=== PATIENT | female | born 1975 | race Caucasian/White ===

== ENCOUNTER → 2019-08-06 16:54 | Outpatient (CLI) | payer BC, MEDICAID, SELFPAY ==
[2019-08-06 15:17] VITALS: BMI 32.3
[2019-08-06 17:32] LABS: Protein, Urine (Random) 13.5 mg/dL (<11.9); Protein:Creat Ratio 96 mg/g CRE (0-200)
[2019-08-06 17:36] LABS: Amphetamine Urine VISTA NEGATIVE (<1000 ng/mL); Barbiturate Urine VISTA NEGATIVE (< 200 ng/mL); Benzodiazepine Urine VISTA NEGATIVE (< 200 ng/mL); Cocaine Urine VISTA NEGATIVE (< 300 ng/mL); Ecstacy Urine VISTA NEGATIVE (< 500 ng/mL); Methadone Urine VISTA NEGATIVE (< 300 ng/mL); PCP Urine VISTA NEGATIVE (< 25 ng/mL); THC Urine VISTA NEGATIVE (< 50 ng/mL); Vista UDS pH Range 6
[2019-08-06 22:16] LABS: Chlamydia Trachomatis by PCR Negative (Negative); Neisserai gonorrhoeae by PCR Negative (Negative); Probe Check PASS; Sample Adequacy Control PASS; Specimen Processing Control PASS
[2019-08-11 17:37] LABS: HPV APTIMA, High Risk Negative (Negative)
== END ==
PROVIDERS: Referring Provider Obstetrics & Gynecology; Visit Provider Obstetrics & Gynecology
DX: O16.9 Unspecified maternal hypertension, unspecified trimester (principal); O09.529 Supervision of elderly multigravida, unspecified trimester; Z3A.00 Weeks of gestation of pregnancy not specified; Z12.4 Encounter for screening for malignant neoplasm of cervix
CPT/HCPCS: 80307; 82570; 84156; 87086; 87491; 87591; 87624; 88175; G0145

== ENCOUNTER → 2019-09-04 14:59 | Outpatient (CLI) | payer BC, MEDICAID, SELFPAY ==
[2019-09-04 14:31] VITALS: BMI 36.6
[2019-09-04 15:54] LABS: Absolute Lymphocyte Count 2.62 X10^3/uL (0.83-4.51); Absolute Neutrophil Count 5.6 X10^3/uL (2.0-7.7); Basophil# 0.05 X10^3/uL; Basophil% 0.5 % (0-1); Eosinophil# 0.13 X10^3/uL; Eosinophils% 1.4 % (0-5); Hemoglobin 13.3 g/dL (12.0-15.0); Lymphocyte # 2.62 X10^3/ul (4.0); Lymphocyte % 28.4 % (19-41); Mean Corp Hgb Conc 34.1 g/dL (32-36); Mean Corpuscular Hgb 31.1 pg (27.0-32.0); Mean Corpuscular Volume 91.3 fL (81-99); Mean Platelet Vol. 10.8 fl (6.2-12.0); Monocyte# 0.76 X10^3/uL; Monocyte% 8.3 % (0-10); NRBC Flagged by Analyzer 0 % (0-5); Neutrophil # 5.63 X10^3/uL (2.7-7.7); Neutrophil % 61.2 % (47-70); Platelet Count 256 K/mm3 (150-450); RBC Distribution Width CV 12.3 % (11.6-14.6); Red Blood Count 4.27 M/mm3 (4.2-5.4); White Blood Count 9.2 K/mm3 (4.4-11.0)
[2019-09-04 16:04] LABS: NATERA MAILED SPECIMEN
[2019-09-04 16:25] LABS: ALB/GLOB Ratio 0.9 RATIO (0.9-2.4); AST(SGOT) 14 U/L (15-37); Alanine Aminotransfer ALT/SGPT 17 U/L (13-56); Albumin, Serum 3.5 g/dL (3.2-5.0); Alkaline Phosphatase 97 U/L (45-117); Anion Gap 7 (5-15); BUN 7 mg/dL (7-18); BUN/Creat Ratio 13.2 RATIO (10-20); Chloride 107 mmol/L (98-107); Creatinine, Serum 0.53 mg/dL (0.55-1.02); EST Glomerular Filtration Rate 134 mL/min (>60); Est Glom Filt Rate - Afr Amer 162 mL/min (>60); Globulin 3.7 g/dL (2.2-4.2); Glucose 92 mg/dL (74-106); Potassium 3.4 mmol/L (3.5-5.1); Protein, Total 7.2 g/dL (6.4-8.2); Sodium Level 138 mmol/L (136-145)
[2019-09-05 08:35] LABS: HIV - WCH Non-Reactive (Nonreactive); Hepatitis B Surface Antigen Non-Reactive (Nonreactive); Hepatitis C Antibody Non-Reactive (Nonreactive); Rubella IgG > 500.0 IU/mL
[2019-09-10 08:05] LABS: Rapid Plasmin Reagin (RPR) NONREACTIVE (NONREACTIVE)
== END ==
PROVIDERS: Referring Provider Obstetrics & Gynecology; Visit Provider Obstetrics & Gynecology
DX: O16.9 Unspecified maternal hypertension, unspecified trimester (principal); O09.529 Supervision of elderly multigravida, unspecified trimester; Z3A.00 Weeks of gestation of pregnancy not specified
CPT/HCPCS: 36415; 80053; 85025; 86592; 86703; 86762; 86803; 86850; 86900; 86901; 87340

== ENCOUNTER → 2019-09-14 13:43 | Outpatient (CLI) | payer BC, MEDICAID, SELFPAY ==
[2019-09-04 14:31] VITALS: BMI 36.6
[2019-09-14 15:04] LABS: Potassium 3.4 mmol/L (3.5-5.1)
== END ==
PROVIDERS: Referring Provider Obstetrics & Gynecology; Visit Provider Obstetrics & Gynecology
DX: E87.6 Hypokalemia (principal)
CPT/HCPCS: 36415; 84132

== ENCOUNTER → 2019-09-30 14:34 | Outpatient (CLI) | payer BC, MEDICAID, SELFPAY ==
[2019-09-30 14:24] VITALS: BMI 32.8
[2019-09-30 15:07] LABS: Potassium 3.6 mmol/L (3.5-5.1)
== END ==
PROVIDERS: Referring Provider Obstetrics & Gynecology; Visit Provider Obstetrics & Gynecology
DX: E87.6 Hypokalemia (principal)
CPT/HCPCS: 36415; 84132

== ENCOUNTER 2019-12-16 19:12 | Inpatient (IN) | payer BC, MEDICAID, SELFPAY ==
[2019-12-16 14:42] VITALS: BMI 32.8
[2019-12-16 20:31] LABS: Fibrinogen 515 mg/dl (203-444)
[2019-12-16 20:39] LABS: Hemoglobin A1c 5.4 % (3.8-5.6)
[2019-12-16 20:42] LABS: Thyroid Stim Hormone (TSH) 1.62 uIU/mL (0.358-3.74)
[2019-12-16] MEDS: miSOPROStol 200 MCG Tablet 800 MCG VAGINAL (20:43)
[2019-12-16 20:50] VITALS: BP 128/72; PULSE 73; TEMP 36.4; O2SAT 98
[2019-12-16 20:55] VITALS: BMI 33.5
[2019-12-16 22:15] LABS: Absolute Lymphocyte Count 3.12 X10^3/uL (0.83-4.51); Absolute Neutrophil Count 6.7 X10^3/uL (2.0-7.7); Basophil# 0.04 X10^3/uL; Basophil% 0.4 % (0-1); Eosinophil# 0.14 X10^3/uL; Eosinophils% 1.3 % (0-5); Hematocrit 33.5 % (37-47); Hemoglobin 11.4 g/dL (12.0-15.0); Lymphocyte # 3.12 X10^3/ul (4.0); Lymphocyte % 28.9 % (19-41); Mean Corpuscular Hgb 32.3 pg (27.0-32.0); Mean Corpuscular Volume 94.9 fL (81-99); Mean Platelet Vol. 11.2 fl (6.2-12.0); Monocyte% 6.5 % (0-10); NRBC Flagged by Analyzer 0 % (0-5); Neutrophil # 6.74 X10^3/uL (2.7-7.7); Neutrophil % 62.3 % (47-70); Platelet Count 290 K/mm3 (150-450); RBC Distribution Width CV 12.2 % (11.6-14.6); RBC Distribution Width SD 42.2 fl (35.1-43.9); Red Blood Count 3.53 M/mm3 (4.2-5.4); White Blood Count 10.8 K/mm3 (4.4-11.0)
[2019-12-16 22:34] VITALS: BP 126/72; PULSE 78; TEMP 36.9; O2SAT 96
[2019-12-17] VITALS (40 sets, daily range): BP systolic 99–149; BP diastolic 47–77; PULSE 61–88; RESP 14–18; TEMP 36.5–39.1; O2SAT 94–100
[2019-12-17] MEDS: miSOPROStol 200 MCG Tablet 400 MCG VAGINAL ×3 (01:01→09:08)
[2019-12-17] MEDS: 0.9% Saline Lock 10 ML Syringe IV ×3 (02:19→13:59)
--- NOTE | 2019-12-17 03:18 | NURSING ---
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
--- NOTE | 2019-12-17 05:48 | HP.PCM_ITS ---
- Problem List (1) AMA (advanced maternal age) multigravida 35+ Status: Acute Comment: PRR PASCUAL ?03/22/2020 PC: Rita Watts, Stefano Nelson Adrienne, Chloe Spouse: Jordon (2) demise, greater than 22 weeks, antepartum Status: Acute (3) Hypertension affecting Status: Acute Comment: never formally diagnosed, no meds. check home bps start baby ASA, check BP x1 week; baseline labs drawn. (4) Status: Acute Qualifiers: Comment: carrier neg. , NIPT abnormal trisomy 21. didn't get AFP done. anatomy with MFM- reviewed (5) Tobacco smoking affecting Status: Acute Comment: encouraged cessation (6) Trisomy 21 of fetus in current gilbert Status: Acute Comment: 01/13 risk on NIPT, declines amniocentesis, nl anatomy and echo. FU Q4 wks biometric parameters and anatomy. weekly BPP starting @ 32 wks with MFM. Delivery recommended at tertiary center will follow with [facility] until 36 weeks History and Physical Date of Admission: 12/17/19 Intake Vital Signs 12/16/19 BMI 32.8 12/16/19 Height 5 ft 2 in 12/16/19 BP 160/100 H Intake Visit Reasons: 26WK DEMISE Chief Complaint: 26 week demise Crystal Grower Required: No Is patient in pain?: No Allergies No Known Allergies Allergy (Verified 12/16/19 20:55) Medications Vits [Prenatabs FA] 1 tab PO DAILY 02/07/15 [History Confirmed 12/16/19] Is last menstrual period known: No Post menopausal: No : No PFSH Medical History (Updated 12/17/19 @ 05:[address] Guerita Cabrera MD) Adenomyosis (Acute) demise, greater than 22 weeks, antepartum (Acute) Surgical History History of cholecystectomy (Acute) Family History Grandfather Cancer Grandmother Cancer Social History (Updated 12/17/19 @ 05:[address] Guerita Cabrera MD) adopted: No household members: family housing: house number of children: 6 current occupational status: other pets and animals: No history of recent travel: No sexually active: Yes Smoking Status: Current every day smoker second hand exposure: Yes alcohol intake: never substance use type: does not use seatbelt use: always do you feel safe at home: Yes additional social history: Damaris PATTON HPI 26WK DEMISE : Details: SPEEDY HORTON is a 44 year old who presents for discussion of demise. she has a complicated by trisomy 21 and upon evaluation for a echo today, demise was diagnosed. she denies any vb lof, was feeling movement. Pregancy History 8 Elective abortions Hx Para 6 Spontaneous abortions 1 Hx # Term Pregnancies Ectopic pregnancies Hx # Pregnancies Multiple births # of living children 6 Past Pregnancies Del. Date Name GA/Weeks Outcome Route Bth Weight Gen Labor Lgth Anesthesia Del Locatn Provider FOB Unknown 09/23/95- Stefanie 42 live - full term 8lbs 7oz Female 3 -4 hours epidural [facility] Unknown 12/24/96- Rita 41 live - full term 8lbs 11oz Female 3- hours epidural [place] Unknown 11/13/98 Leslie 39 live - full term 10lbs 1oz Female epidural [facility] general Unknown 11/18/01 Stefano 39 live - full term 8lbs 13oz Male epidural [facility] Tizzano Unknown 02/06/03 Ayala 39 live - full term 8lbs Fema le epidural [facility] [place] Unknown 02/11/2015- Neda 38 live - full term 8lbs 9oz Female epidural [facility] Gualberto Ruvalcaba Delivery Date: On 08/06/19 @ 15:23 Stefanie Josue No complications Delivery Date: On 08/06/19 @ 15:24 Stefanie Josue no complications Delivery Date: On 08/06/19 @ 15:25 Stefanie Josue no complications Delivery Date: On 08/06/19 @ 15:27 Stefanie Josue baby had stroke after delivery Delivery Date: On 08/06/19 @ 15:28 Stefanie Josue no complications Delivery Date: On 08/06/19 @ 15:31 Stefanie Josue iol- htn ROS Const Constitutional: Denies fatigue, fever(s), headache(s), increased appetite, poor appetite, weight gain or weight loss Cardio Card: Denies chest pain Resp Resp: Denies cough or dyspnea GI GI: Reports as per HPI; denies abdominal pain, constipation, nausea or vomiting : Reports as per HPI; denies difficulty urinating, painful urination, nipple discharge, urinary frequency, urinary incontinence, urinary hesitancy, urinary urgency, vaginal discharge, vaginal dryness, vaginal odor or vaginal itching Skin Skin/Breast: Denies change in hair, breast lump, breast pain, breast skin changes or nipple discharge Exam Const General: cooperative, healthy appearing, comfortable, no acute distress, well developed Nutritional Appearance: average body habitus Orientation: alert HENMT Head: normal to inspection, normocephalic Neck Neck: normal visual inspection, trachea midline Thyroid: thyroid normal Resp Effort & Inspection: normal respiratory effort GI Palpation: soft, other (gravid AGA) Skin General: no rashes or lesions noted Assessment & Plan Problems 1. Z34.90 carrier neg. , NIPT abnormal trisomy 21. didn't get AFP done. anatomy with MFM- reviewed 2. AMA (advanced maternal age) multigravida 35+ O09.529 PRR PASCUAL ?03/22/2020 PC: Rita Watts Andie, Ryan, Adrienne, Chloe Spouse: Jordon 3. Hypertension affecting O16.9 never formally diagnosed, no meds. check home bps start baby ASA, check BP x1 week; baseline labs drawn. 4. Trisomy 21 of fetus in current gilbert O35.1XX0 9/10 risk on NIPT, declines amniocentesis, nl anatomy and echo. FU Q4 wks biometric parameters and anatomy. weekly BPP starting @ 32 wks with MFM. Delivery recommended at tertiary center will follow with [facility] until 36 weeks 5. Tobacco smoking affecting O99.330 encouraged cessation 6. demise, greater than 22 weeks, antepartum O36.4XX0 Plan Patient presents IOL, plan management for with cytotec and possible pitocin. 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 GBS unknown, no signs of infection. Management of any complications: suspected trisomy 21 with demise. ordered lab evaluation and plan genetic studies if desired by patient. I have reviewed the [facility] and made any clinically relevant updates. Coding Level of Care Code Off vis,est,level 4 Diagnoses Z34.90 AMA (advanced maternal age) multigravida 35+ O09.529 Hypertension affecting O16.9 Trisomy 21 of fetus in current gilbert O35.1XX0 Tobacco smoking affecting O99.330 demise, greater than 22 weeks, antepartum O36.4XX0
[2019-12-17] MEDS: 0.9% Normal Saline Single 100 ML IV.SOLN. IY (07:56)
--- NOTE | 2019-12-17 10:40 | PLAC_PTH ---
PATIENT: SPEEDY HORTON LOC: WP U#:[id number] AGE/SX: 44/F ROOM: WP021 RE12/16/[address]: Dr. Guerita Cabrera MD : [id number] BED: 1 DIS: 12/17/2019 SPEC #: [id number] RECD: 12/17/19 18:12 STATUS: DREA REWilbert #: [id number] RICHARD: 12/17/19 10:[address]: Guerita Cabrera DEPT: SURGICAL PATHOLOGY RECD BY: Stefano Jerez ENTERED: 12/18/19 07:54 SP TYPE: PLACENTA OTHR DR: No Primary Care Phys Tissues: Placenta, NOS Procedures: Surgery Specimen Level V HEADER OPERATION: Vaginal delivery PRE-OP DIAGNOSIS: demise TISSUE SUBMITTED: Placenta MICROSCOPIC DIAGNOSIS Placenta: Placental disc - third trimester placenta (224 gm). Membranes - no pathologic diagnosis. Umbilical cord - three blood vessels and macerated. SJ:peace 12/21/19 MICROSCOPIC DESCRIPTION Slides are reviewed. GROSS DESCRIPTION SPECIMEN: PLACENTA / CLINICAL INFORMATION: A. Weight: Not noted B. Gestational Age: 26 weeks and 2 days C. Sex: Male PLACENTAL WEIGHT (POST FIXATION): 224 gm PLACENTAL DIMENSIONS: 12 x 11 x 3 cm PLACENTAL SHAPE: Usual ovoid PLACENTAL WEIGHT FOR GESTATIONAL AGE: Within 10-99th percentile MEMBRANES - Present. A clamp is noted on the membrane including umbilical cord. A. Insertion: Marginal B. Site of rupture from edge: The membranes are fragmented and distance of rupture cannot be assessed. C. Color of membrane: Pimentel-robles D. Abnormalities: None UMBILICAL CORD - Present. It is pimentel-pink and macerated. A. Color: Pimentel-robles B. Insertion: Central C. Length: 45 cm D. Diameter: 1 cm E. Number of vessels: Three F. Abnormalities: None PLACENTAL DISC - Present A. Color of surface: Pimentel-robles B. surface abnormalities: None C. Maternal cotyledons: Intact with minimal tears D. Attached retro placental clot: A few blood clots are noted adherent to peripheral portion of the placenta measuring 6 x 4 x 1 cm and weighing 11 gm. E. Cut surface: Dark red and spongy F. Lesions: None G. Separate clot: Absent SECTIONS SUBMITTED: 1. Membrane roll 2. Cord, maternal end 3. Cord, end 4. Placental disc, and maternal surfaces 5. Placental disc, and maternal surfaces 6. Placental disc, and maternal surfaces SJ:peace 12/18/19 TC:5 CPT: 92033
[2019-12-17] MEDS: Oxytocin 30 units/NS 500 ml 30 UNITS/500 ML IV.SOLN 334 UNITS IV (10:56)
--- NOTE | 2019-12-17 11:07 | PCM.OPRPT ---
Problem List (1) AMA (advanced maternal age) multigravida 35+ Status: Acute Comment: PRR PASCUAL ?03/22/2020 PC: Rita Watts, Stefano Nelson Adrienne, Chloe Spouse: Jordon (2) demise, greater than 22 weeks, antepartum Status: Acute (3) Hypertension affecting Status: Acute Comment: never formally diagnosed, no meds. check home bps start baby ASA, check BP x1 week; baseline labs drawn. (4) Status: Acute Qualifiers: Comment: carrier neg. , NIPT abnormal trisomy 21. didn't get AFP done. anatomy with MFM- reviewed (5) Tobacco smoking affecting Status: Acute Comment: encouraged cessation (6) Trisomy 21 of fetus in current gilbert Status: Acute Comment: 01/13 risk on NIPT, declines amniocentesis, nl anatomy and echo. FU Q4 wks biometric parameters and anatomy. weekly BPP starting @ 32 wks with MFM. Delivery recommended at tertiary center will follow with [facility] until 36 weeks Vaginal Delivery Maternal Presentation: Medically Indicated Induction iol 26 demise with trisomy 21 Method of Induction: Diaz Bulb, Cytotec Medical Reason for Induction: demise - trisomy 21 Amniotic Membrane Rupture Type: Spontaneous Amniotic Fluid Description: Clear Final PASCUAL: 03/22/20 Gestational age: 26 Weeks and 2 Days Date of Procedure: 12/17/19 Pre-Operative Diagnosis: iol demise trisomy 21 Post-Operative Diagnosis: same Surgery/ Procedure Performed: Spontaneous Vaginal Delivery Type of Anesthesia: None Description of Procedure: Patient was induced with Cytotec followed by Diaz bulb placement and was 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 Patient began feeling pressure and was noted to be completely dilated with gestational sac present in the vaginal cavity. Patient began pushing with contractions and delivered the gestational sac intact and then it spontaneously ruptured with the fetus in complete breech presentation. The infant was rotated to the back anterior presentation and arms swept across the chest and gentle downward traction on the maxillary region to aid in delivery of the head. Infant delivered without complication and was inspected and noted to have characteristics of trisomy 21 based on facial features and low-set ears. Cord was clamped and cut and within 20 minutes the placenta delivered spontaneously and was noted to be intact with a three-vessel cord. No gross abnormalities were noted to the placenta and was sent to pathology for analysis. Patient declined genetic testing. Presentation: Complete Breech Placental Delivery Description: Spontaneous Placenta Disposition: [facility] Cord Vessel Description: 3 Vessels Cord Entanglement: None Estimated Blood Loss: 200 A gender: Male (1 minute): 0 (5 minute): 0 Episiotomy Description: None Laceration: None Medications given after delivery: IV Pitocin Complications: None Multi Select Codes - Urinary/Genital Urinary/Genital CPT Codes: 00253 Vaginal Delivery+ PP Care([facility])
[2019-12-17] MEDS: Acetaminophen 325 MG Tablet 650 MG PO (11:36)
[2019-12-17] MEDS: Cefazolin 2 GM in 0.9% Normal Saline 100 ML IV (12:08)
[2019-12-17 12:09] LABS: Absolute Lymphocyte Count 3.19 X10^3/uL (0.83-4.51); Absolute Neutrophil Count 11.4 X10^3/uL (2.0-7.7); Basophil# 0.05 X10^3/uL; Basophil% 0.3 % (0-1); Eosinophils% 0.6 % (0-5); Hematocrit 32.4 % (37-47); Hemoglobin 11.3 g/dL (12.0-15.0); Lymphocyte # 3.19 X10^3/ul (4.0); Lymphocyte % 20.2 % (19-41); Mean Corp Hgb Conc 34.9 g/dL (32-36); Mean Corpuscular Volume 94.7 fL (81-99); Mean Platelet Vol. 10.7 fl (6.2-12.0); Monocyte# 1.03 X10^3/uL; Monocyte% 6.5 % (0-10); NRBC Flagged by Analyzer 0 % (0-5); Neutrophil # 11.37 X10^3/uL (2.7-7.7); Platelet Count 265 K/mm3 (150-450); RBC Distribution Width SD 41.5 fl (35.1-43.9); Red Blood Count 3.42 M/mm3 (4.2-5.4); White Blood Count 15.8 K/mm3 (4.4-11.0)
[2019-12-17] MEDS: Naproxen 250 MG Tablet 500 MG PO (12:52)
[2019-12-17 14:25] LABS: Kleihauer-Betke Negative
--- NOTE | 2019-12-17 15:00 | NURSING ---
Male stillborn at 1040 with a weight of 1lb 12.3oz, a body length of 13 inches, and a head circumference of 22.5cm.
[2019-12-17] MEDS: Senna/Docusate Sodium 1 Tablet PO (15:20)
--- NOTE | 2019-12-17 17:48 | DCINST_ITS ---
Discharge Diet: No Restrictions Discharge Activity: Return to Normal Activity, May not drive while taking narcotic pain medications., May Shower May resume sexual activity in: 4-6 weeks Call your doctor if your incision/area has: Continuous Slow Oozing, Sudden Increased Bleeding, Increased Pain/ Swelling, Increased Redness, Foul Smelling Discharge Additional Instructions: If you experience any of the following, contact your healthcare provider. * Bleeding that soaks a pad every hour for 2 hours * Fever 100.4 or higher * Unrelieved incision or abdominal pain * Swelling, redness, discharge or bleeding from your incision or episiotomy site * Your incision begins to separate * Problems urinating (including inability to urinate or burning while urinating). * Visual changes * Severe headache * Flu-like symptoms * Pain or redness in one of both of your breasts * Pain, warmth, tenderness or swelling in your legs, especially the calf area * Frequent nausea and vomiting * Symptoms of depression or anxiety If you experience any of the following, call 911 or go to the nearest Emergency Room. * Chest pain * Problems breathing * Seizure activity * Partial or complete paralysis of a body part, slurred speech, weakness or drooping of the face, or a sudden inability to walk or hold your balance Allergies/Adverse Reactions: Allergies No Known Allergies Allergy (Verified 12/16/19 20:55) Medications to take at Discharge Vits [Prenatabs FA] 1 tab PO DAILY 02/07/15 Please Follow Up With: Guerita Cabrera MD - [phone] When: Call to make an appointment with your doctor in 6 weeks. If you had elevated Blood pressure or 4th degree laceration you will need to be seen in 2 weeks. Primary Care Physician: Care Physician,No Primary [Primary Care Provider] - Test Results: Test results from this visit will be discussed in further detail at your follow- up appointment, if applicable.
--- NOTE | 2019-12-17 17:48 | PCM.DCVAG ---
Discharge Diet: No Restrictions Discharge Activity: Return to Normal Activity, May not drive while taking narcotic pain medications., May Shower May resume sexual activity in: 4-6 weeks Call your doctor if your incision/area has: Continuous Slow Oozing, Sudden Increased Bleeding, Increased Pain/ Swelling, Increased Redness, Foul Smelling Discharge Additional Instructions: If you experience any of the following, contact your healthcare provider. Bleeding that soaks a pad every hour for 2 hours Fever 100.4 or higher Unrelieved incision or abdominal pain Swelling, redness, discharge or bleeding from your incision or episiotomy site Your incision begins to separate Problems urinating (including inability to urinate or burning while urinating). Visual changes Severe headache Flu-like symptoms Pain or redness in one of both of your breasts Pain, warmth, tenderness or swelling in your legs, especially the calf area Frequent nausea and vomiting Symptoms of depression or anxiety If you experience any of the following, call 911 or go to the nearest Emergency Room. Chest pain Problems breathing Seizure activity Partial or complete paralysis of a body part, slurred speech, weakness or drooping of the face, or a sudden inability to walk or hold your balance Allergies/Adverse Reactions: Allergies No Known Allergies Allergy (Verified 12/16/19 20:55) Medications to take at Discharge Vits [Prenatabs FA] 1 tab PO DAILY 02/07/15 Please Follow Up With: Guerita Cabrera MD - [phone] When: Call to make an appointment with your doctor in 6 weeks. If you had elevated Blood pressure or 4th degree laceration you will need to be seen in 2 weeks. Primary Care Physician: Care Physician,No Primary [Primary Care Provider] - Test Results: Test results from this visit will be discussed in further detail at your follow-up appointment, if applicable.
[2019-12-17 18:25] LABS: Pathology Specimen OB SEE PATHOLOGY REPORT
[2019-12-20 16:07] LABS: Dilute Prothrombin Time (dPT) 26.6 sec (0.0-55.0); Dilute Russell Viper Venom 33.4 sec (0.0-47.0); Thrombin Time 16.4 sec (0.0-23.0); dPT Confirm Ratio 1.03 Ratio (0.00-1.40)
[2019-12-21 05:00] LABS: Anti-Cardiolipin Ab, IgG, Qn < 9 GPL U/mL (0-14); Anti-Cardiolipin Ab, IgM, Qn < 9 MPL U/mL (0-12); Beta-2-Glycoprotein I IgA <9 (0-25); Beta-2-Glycoprotein I IgG <9 (0-20); Beta-2-Glycoprotein I IgM <9 (0-32); Interpretation Comment: (.)
== END 2019-12-17 19:47 | disposition home or self-care (01) | DRG 807 ==
PROVIDERS: Admitting Provider Obstetrics & Gynecology; Visit Provider Obstetrics & Gynecology
DX: O36.4XX0 Maternal care for intrauterine death, not applicable or unspecified (principal); Z37.1 Single stillbirth; O16.4 Unspecified maternal hypertension, complicating childbirth; O32.1XX0 Maternal care for breech presentation, not applicable or unspecified; Z3A.00 Weeks of gestation of pregnancy not specified
CPT/HCPCS: 59050; 83036; 84443; 85025; 85384; 85460; 86146; 86147; 86850; 86900; 86901; 88307; 99218; A4216; G0378

== ENCOUNTER → 2020-02-19 07:53 | Outpatient (CLI) | payer BC, MEDICAID, SELFPAY ==
[2020-01-15 14:02] VITALS: BMI 33.5
--- NOTE | 2020-02-19 08:08 | BI_ITS ---
MAMMOGRAPHY - BILATERAL SCREENING REASON FOR EXAM: Female, 45 years old. Routine annual screening examination. PERTINENT HISTORY: Non-contributory. TECHNIQUE: Digital bilateral breast earle (3D mammographic acquisition) in the CC and MLO projections. 2-D mediolateral oblique (MLO) and craniocaudad (CC) views of both breasts were obtained. CAD: Full Field Digital Mammography with Computer Added Detection was performed. COMPARISON: None. Baseline examination. FINDINGS: Breast Composition: The breasts are heterogeneously dense, which may obscure small masses. There are no dominant masses or suspicious calcifications. Small benign-appearing bilateral axillary lymph nodes. No other significant abnormalities are identified. BI/SCREEN MAMM (CAD) W/EARLE BILAT IMPRESSION: Negative screening mammogram. Yearly followup mammogram recommended. (A) ASSESSMENT CATEGORY: BIRADS Category 2: Benign. A letter regarding these results will be sent to the patient by the facility within 30 days. Approximately 10% of breast cancers are not detected by mammography. A normal mammogram should not delay biopsy of a clinically suspicious abnormality. [id number] Electronically Signed: Jovan Cabrera, at 10:13 EDT , Service support ,
== END ==
PROVIDERS: PCP Internal Medicine; Referring Provider Obstetrics & Gynecology; Visit Provider Obstetrics & Gynecology
DX: Z12.31 Encounter for screening mammogram for malignant neoplasm of breast (principal)
CPT/HCPCS: 77063; 77067

== ENCOUNTER 2020-02-20 17:08 | Emergency (ER) | payer BC, MEDICAID, SELFPAY ==
[2020-01-15 14:02] VITALS: BMI 33.5
[2020-02-20 17:10] VITALS: BP 146/76; PULSE 61; RESP 18; TEMP 36.2; O2SAT 98; BMI 32.0
[2020-02-20 17:58] LABS: Absolute Neutrophil Count 3.3 X10^3/uL (2.0-7.7); Basophil# 0.05 X10^3/uL; Basophil% 0.7 % (0-1); Eosinophil# 0.25 X10^3/uL; Eosinophils% 3.3 % (0-5); Hematocrit 39.3 % (37-47); Hemoglobin 12.6 g/dL (12.0-15.0); Lymphocyte % 44.8 % (19-41); Mean Corp Hgb Conc 32.1 g/dL (32-36); Mean Corpuscular Volume 96.6 fL (81-99); Mean Platelet Vol. 10.2 fl (6.2-12.0); Monocyte# 0.53 X10^3/uL; NRBC Flagged by Analyzer 0 % (0-5); Neutrophil # 3.34 X10^3/uL (2.7-7.7); Neutrophil % 43.9 % (47-70); Platelet Count 259 K/mm3 (150-450); RBC Distribution Width CV 11.9 % (11.6-14.6); RBC Distribution Width SD 42.6 fl (35.1-43.9); Red Blood Count 4.07 M/mm3 (4.2-5.4); White Blood Count 7.6 K/mm3 (4.4-11.0)
[2020-02-20] MEDS: 0.9% Normal Saline 1,000 ML 1000 ML IV (18:02)
[2020-02-20 18:07] VITALS: BP 129/100; BP 140/87; BP 148/94; PULSE 51; PULSE 56; PULSE 64
[2020-02-20 18:08] LABS: Internal QC Validated? YES +Cl - CLEAR BKGD; Pregnancy, Serum, hCG Quali. NEGATIVE Negative
--- NOTE | 2020-02-20 18:39 | ED.DCSUM_ITS ---
- ER Visit Summary Date of Service: 02/20/20 Chief Complaint: [Vaginal bleeding] History of Present Illness: The patient is a 45 F [presents to the emergency department with vaginal bleeding for the last 4 days.] Patient states that she had a miscarriage at a gestational age of 26 weeks in December. Patient states that she is having heavy bleeding and initially had a few clots the first day that were little larger than a quarter but is not currently passing any clots. Patient is going through a super tampon or pad about every hour to hour and a half. She feels somewhat weak and lightheaded. She has some intermittent abdominal pain and cramping as well as some mild back pain. The discomfort is typical of her menstrual periods. Patient is G8, P6. Patient has history of hypertension. Patient has had prior cholecystectomy. Physical Examination: [HEENT-PERRLA, EOMI. Cranial nerves II through XII grossly intact. TMs clear. Mucous membranes moist. No adenopathy. Cardiovascular-regular rate and rhythm without murmur or ectopy Lungs-clear to auscultation, chest wall stable without crepitus or subcu emphysema Abdomen-normoactive bowel sounds, soft, nontender, no rebound or rigidity, no peritoneal signs. Extremities-intact ?4, normal range of motion, normal pulses, atraumatic] Test Results: [CBC with differential obtained showing a 7.6, hemoglobin 12.6, hematocrit 39, placed 259. hCG was negative. Orthostatic vital signs were negative.] Emergency Department Course and Treatment: [The line established on arrival. 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 Cabrera. I was asked to start patient on Aygestin 5 mg twice daily for 3 days and once a day thereafter with a total of 30 tablets. Patient advised to follow-up in the office within the next week.] Patient advised to return if persistent heavy bleeding, lightheadedness, worsening abdominal pain, or condition should worsen anyway. Disposition: [Discharged home in stable condition] Impression: [Vaginal bleeding] This note was generated with [employer] dictation software. It may contain incorrect words, spelling, and punctuation that were not noted in review of the chart prior to signing ED Disposition - Plan for ED Patient: Referrals: Esvin Griffith MD [Primary Care Provider] -
--- NOTE | 2020-02-20 18:43 | ED.DEP ---
ED Disposition - Plan for ED Patient: Instructions: ED Bleed Irregular Vaginal Prescriptions: Norethindrone [Aygestin] 5 mg PO DAILY 5 Days #30 tab Prescription Printed Referrals: Esvin Griffith MD [Primary Care Provider] - Guerita Cabrera MD [STAFF PHYSICIAN] - 1 Week if not improving
[2020-02-20 18:52] VITALS: BP 135/87; PULSE 53; RESP 17; O2SAT 98
== END 2020-02-20 19:06 | disposition home or self-care (01) ==
PROVIDERS: Emergency Provider Emergency Medicine; PCP Internal Medicine
DX: N93.9 Abnormal uterine and vaginal bleeding, unspecified (principal); F17.200 Nicotine dependence, unspecified, uncomplicated; I10 Essential (primary) hypertension
CPT/HCPCS: 84703; 85025; 86850; 86900; 86901; 96360; 99281; 99284; A4216

== ENCOUNTER → 2022-08-08 | Outpatient (CLI) | payer BC, MEDICAID, SELFPAY ==
--- NOTE | 2022-08-08 14:46 | BI_ITS ---
MAMMOGRAPHY - BILATERAL SCREENING REASON FOR EXAM: Female, 47 years old. Routine annual screening examination. PERTINENT HISTORY: Non-contributory. TECHNIQUE: Digital bilateral breast earle (3D mammographic acquisition) in the CC and MLO projections. 2-D mediolateral oblique (MLO) and craniocaudad (CC) views of both breasts were obtained. CAD: Full Field Digital Mammography with Computer Added Detection was performed. COMPARISON: Comparison is made with prior examination February 19, 2020. FINDINGS: Breast Composition: There are scattered areas of fibroglandular density. There are no dominant masses or suspicious calcifications. Stable small benign appearing bilateral axillary lymph nodes. No other significant abnormalities are identified. There has been no significant change since the prior study. BI/SCRN MAMM (CAD)W/EARLE BILAT IMPRESSION: Stable bilateral screening mammogram. Yearly follow-up mammogram recommended. (A) ASSESSMENT CATEGORY: BIRADS Category 2: Benign. A letter regarding these results will be sent to the patient by the facility within 30 days. Approximately 10% of breast cancers are not detected by mammography. A normal mammogram should not delay biopsy of a clinically suspicious abnormality. [id number] Electronically Signed: Jovan Cabrera MD at 15:30 EDT ,
== END | disposition home or self-care (01) ==
LOC: OPBI 14:43
PROVIDERS: PCP Internal Medicine; Referring Provider Nurse Practitioner Women's Health; Visit Provider Nurse Practitioner Women's Health
DX: Z12.31 Encounter for screening mammogram for malignant neoplasm of breast (principal)
CPT/HCPCS: 77063; 77067

== ENCOUNTER 2024-10-19 19:04 | Emergency (ER) | payer BC, SELFPAY ==
[2024-10-19] VITALS (21 sets, daily range): BP systolic 119–151; BP diastolic 62–102; PULSE 52–82; RESP 11–20; TEMP 36.6–36.8; O2SAT 94–100; BMI 32.5
--- NOTE | 2024-10-19 19:07 | EKG12_ITS ---
Test Reason : NECK PAIN Blood Pressure : */* mmHG Vent. Rate : 58 BPM Atrial Rate : 58 BPM P-R Int : 158 ms QRS Dur : 86 ms QT Int : 418 ms P-R-T Axes : 53 3 64 degrees QTcB Int : 410 ms Sinus bradycardia Low voltage QRS Borderline ECG Confirmed by ROXANNE MARSH, MARY ([id number]), scientific publications editor ZENOBIA MCCULLOUGH ([id number]) on 10/20/2024 10:53:42 AM Referred By: Confirmed By: MARY OLIVEIRA MD
--- NOTE | 2024-10-19 19:38 | ED.VIS.CHEST ---
HPI History of Present Illness Chief Complaint: Chest Pain Detail of Chief Complaint: Chest pain Informant: patient Narrative Narrative: Patient presents to the emergency department complaining of pain in her neck and shoulders that started an hour prior to coming in. She states that she was at a movie theater when she had this tightness in her neck and shoulders and has also been having heartburn-like symptoms since this morning. She took Pepto several times and it seems to help for short time but then the burning sensation keeps coming back. Patient does have a history of GERD as well as anxiety but is not medicated for anxiety. Her brother who is younger than her has had two-vessel bypass already. She has history of hypertension and she is a smoker. She denies recent travel or surgery. No history of PE or DVT. She denies recent illness. Patient states that she took aspirin and really does not seem to have any more discomfort in her neck or shoulders at this time. [facility] Medical History (Updated 10/19/24 @ 22:[address] Deepak Naqiv, DO) Fibromyalgia Sleep apnea demise, greater than 22 weeks, antepartum Adenomyosis Home Medications ?Medication ?Instructions ?Recorded ?Last Taken ?Type labetalol 100 mg tablet 50 mg (1/2 x 100 mg) PO BID #60 01/01/20 Unknown Rx tabs sertraline 100 mg tablet (Zoloft) 100 mg PO DAILY #30 tabs 07/13/20 Unknown Rx bupropion HCl 150 mg tablet,12 hr 150 mg PO BID #60 ea 07/15/20 Unknown Rx sustained-release (Wellbutrin SR) norethindrone acetate 5 mg tablet 5 mg PO DAILY 5 days #5 tabs 05/02/21 Unknown Rx lansoprazole 30 mg capsule,delayed 30 mg PO DAILY #14 caps 10/19/24 Unknown Rx release (Prevacid) Allergy/AdvReac Type Severity Reaction Status Date / Time No Known Allergies Allergy Verified 10/19/24 19:05 Family History Grandfather Cancer Grandmother Cancer Surgical History History of cholecystectomy Social History (Updated 07/15/20 @ 13:25 by Jesus Byrd NP, [facility]) adopted: No household members: family housing: house number of children: 6 current occupational status: other pets and animals: No history of recent travel: No sexually active: Yes Smoking Status: Current every day smoker tobacco type: cigarettes second hand exposure: Yes alcohol intake: never substance use type: does not use seatbelt use: always do you feel safe at home: Yes additional social history: Damaris PULLIAM ROS ED Review of Systems ROS Unobtainable: other Constitutional Constitutional ED: Reports lethargy; Denies chills, fever(s), sweats or weight loss Eyes Eyes: Denies blurry vision, change in vision or diplopia ENT ENT ED: Denies rhinorrhea or sore throat Cardiovascular Cardiovascular: Reports chest pain; Denies orthopnea or racing heartbeat Respiratory/Chest Respiratory/Chest: Denies cough, dyspnea, dyspnea on exertion, orthopnea or sputum Gastrointestinal Gastrointestinal: Denies abdominal pain, diarrhea, nausea or vomiting Genitourinary Genitourinary ED: Denies dysuria, hematuria or urinary frequency Musculoskeletal Musculoskeletal: Reports neck pain; Denies arthralgias, back pain or myalgias Integumentary Denies abscess, Abrasions or rash Neurologic Neurologic: Denies headache(s) or weakness Psychiatric Psychiatric: Denies anxiety, depression or suicidal thoughts Endocrine Endocrinology: Denies polydipsia, polyphagia or polyuria Hematologic/Lymphatic Hematologic/Lymphatic: Denies easy bleeding, easy bruising or lymphadenopathy Allergic/Immunologic Allergic/Immunologic ED: Denies mouth swelling, tongue swelling or urticaria EXAM Physical Exam Const Vital Signs: 10/19/24 19:05 10/19/24 19:34 10/19/24 19:57 Temperature 97.8 F Temperature Source Temporal Pulse Rate 62 Respiratory Rate 15 Blood Pressure 151/93 H Blood Pressure Mean 112 Pulse Ox 99 100 99 Oxygen Delivery Method Room Air 10/19/24 20:04 10/19/24 20:12 10/19/24 20:15 Temperature Temperature Source Pulse Rate 56 L 55 L 56 L Respiratory Rate 14 13 11 L Blood Pressure 131/85 H 131/85 H Blood Pressure Mean 100 100 Pulse Ox 99 99 99 Oxygen Delivery Method Room Air 10/19/24 20:20 10/19/24 20:25 10/19/24 20:30 Temperature Temperature Source Pulse Rate 67 59 L 58 L Respiratory Rate 16 19 H 20 H Blood Pressure 126/77 H 132/102 H 146/89 H Blood Pressure Mean 92 110 105 Pulse Ox 98 98 98 Oxygen Delivery Method 10/19/24 20:35 10/19/24 20:40 10/19/24 20:45 Temperature Temperature Source Pulse Rate 57 L 56 L 56 L Respiratory Rate 13 18 12 Blood Pressure 131/85 H 133/97 H 132/62 H Blood Pressure Mean 101 106 80 Pulse Ox 99 98 98 Oxygen Delivery Method 10/19/24 20:50 10/19/24 20:55 10/19/24 21:00 Temperature Temperature Source Pulse Rate 61 55 L 52 L Respiratory Rate 15 13 15 Blood Pressure 126/89 H 141/94 H 122/85 H Blood Pressure Mean 100 108 97 Pulse Ox 98 94 98 Oxygen Delivery Method Room Air Room Air 10/19/24 21:00 10/19/24 21:05 10/19/24 21:10 Temperature Temperature Source Pulse Rate 55 L 56 L 54 L Respiratory Rate 13 13 16 Blood Pressure 149/84 H 122/85 H 119/88 H Blood Pressure Mean 102 97 100 Pulse Ox 100 99 96 Oxygen Delivery Method Room Air 10/19/24 21:30 10/19/24 21:45 10/19/24 22:00 Temperature Temperature Source Pulse Rate 57 L 64 Respiratory Rate 13 16 Blood Pressure 139/93 H Blood Pressure Mean 108 Pulse Ox 98 99 100 Oxygen Delivery Method Room Air Positive well nourished and well developed General Appearance ED: well developed and NAD HEENT Reports TM's clear and moist mucous membranes normocephalic and atraumatic; Negative for trauma or tenderness Tympanic Membrane ED: Yes TM's clear Eyes PERRL and EOMs intact bilaterally General Eye ED: Negative for pale conjunctiva or scleral icterus Neck no lymphadenopathy, supple and no JVD General: Negative for tenderness Chest Wall inspection of chest normal and palpation of chest normal Chest: Negative for tenderness Resp normal respiratory effort and clear to auscultation bilaterally Effort and Inspection: Negative for respiratory distress or pain with movement Auscultation: Negative for rhonchi, wheezes or diminished lung sounds Cardio regular rate, regular rhythm, S1 normal heart sound, S2 normal heart sound and no murmurs Peripheral Pulses: pulses 2+ throughout GI normal to inspection, nondistended, normoactive bowel sounds, soft to palpation, non-tender, non-distended and no masses Back/Spine no CVA tenderness and no thoracic nor lumbar tenderness Extremity normal to inspection General Extremety ED: Negative for edema General Extremity: Negative for edema Neuro oriented x3, CN's II-XII intact bilaterally, no sensory deficits noted and gait normal Sensorium / Orientation: awake, alert, oriented to person, oriented to place and oriented to time Motor Exam: strength 5/5 throughout and strength abnormal Psych mental status grossly normal Skin no rashes or lesions noted and no wounds Heart Score History: Slightly/Non-Suspicious ECG: Normal Age: >45 - <65 years Risk Factors: >/= 3 Risk Factors or History of CAD Troponin: </= Normal Limit Score: 3 MDM MDM MDM Narrative Medical decision making narrative: Patient presents to the emergency department complaint of heart burn symptoms for the entire day. Then developed a tightness in her shoulders and neck while at a movie. Concerned about cardiac cause. She has history of hypertension as well as GERD and fibromyalgia and anxiety. In the differential would be acute coronary syndrome versus anxiety versus GERD or other etiology. EKG obtained arrival shows sinus bradycardia with ventricular rate of 58 bpm with no acute ST segment changes. CBC with differential is normal. Chemistry is unremarkable. Troponin less than 6 and 2-hour delta troponin also less than 6. Patient was given a GI cocktail and had some improvement in her heartburn. At this point her heart score is a 3 based on her risk factors including family history as well as smoking history and history of hypertension. I feel she is low risk for acute coronary syndrome. Recommend follow-up with primary care physician within next 3 to 5 days. Will start on Prevacid. Advised return if exertional symptoms persistent chest pain, increasing shortness of breath, condition worsening way. Lab Data Attestation: I reviewed the patient's lab results. Labs: Laboratory Results - last 24 hr 10/19/24 10/19/24 19:46 21:44 WBC 9.6 RBC 4.61 Hgb 14.5 Hct 42.2 MCV 91.5 MCH 31.5 MCHC 34.4 RDW Std Deviation 40.6 RDW Coeff of Juan 12.2 Plt Count 259 MPV 10.6 Immature Gran % (Auto) 0.400 Neut % (Auto) 61.7 Lymph % (Auto) 26.0 Calvert % (Auto) 9.0 Eos % (Auto) 2.2 Baso % (Auto) 0.7 Absolute Neuts (auto) 5.9 Absolute Lymphs (auto) 2.50 Nucleated RBC % 0 Sodium 139 Potassium 3.6 Chloride 104 Carbon Dioxide 23.7 Anion Gap 12 BUN 12 Creatinine 0.80 Estim Creat Clear Calc 84.66 Est GFR (MDRD) Non-Af 91 BUN/Creatinine Ratio 14.7 Glucose 89 Calcium 9.5 Troponin T High Sens < 6 Troponin T Hi Sens 2 Hr < 6 Radiography Diagnostic Testing: Clinical Impression(s) from Imaging Studies Chest X-Ray 10/19/24 20:15 IMPRESSION: No Acute Findings. Reading Location: [place] [id number] 1 view chest x-ray obtained interpreted by myself as no evidence of infiltrate or pneumothorax or acute disease process. Radiology in agreement. EKG Initial EKG: Attestation: I personally reviewed and interpreted this EKG as follows: Interpretation: No Acute Injury Pattern and Sinus Bradycardia Comments: Sinus rhythm with rate of 58 bpm with no acute ST segment changes Discharge Plan Triage Chief Complaint: Chest Pain ED Provider: Deepak Naqvi Dx/Rx/DC Orders Clinical Impression: Chronic GERD, Chest pain Instructions: ED Chest Pain, Uncertain Cause, ED GERD (Adult) Prescriptions: New lansoprazole [Prevacid] 30 mg capsule,delayed release(DR/EC) 30 mg PO DAILY Qty: 14 0RF No Action labetalol 100 mg tablet 50 mg PO BID Qty: 60 1RF bupropion HCl [Wellbutrin SR] 150 mg tablet sustained-release 12 hr 150 mg PO BID Qty: 60 1RF Rx Instructions: start daily for the first 3 days then increase to twice daily sertraline [Zoloft] 100 mg tablet 100 mg PO DAILY Qty: 30 6RF norethindrone acetate 5 mg tablet 5 mg PO DAILY 5 Days Qty: 5 6RF Rx Instructions: daily x 5 days then stop to induce menses Primary Care Provider: Larissa Jacques NP Referrals: Larissa Jacques [employer]PECTOR, [facility] [Primary Care Provider] - 3-5 Days Print Language: Welsh Disposition Disposition: Home, Self Care
[2024-10-19] MEDS: 0.9% Normal Saline (1000mL) 1,000 ML 150 ML IV (19:55)
[2024-10-19 20:07] LABS: Absolute Neutrophil Count 5.9 X10^3/uL (2.0-7.7); Basophil# 0.07 X10^3/uL; Basophil% 0.7 % (0-1); Eosinophil# 0.21 X10^3/uL; Eosinophils% 2.2 % (0-5); Hematocrit 42.2 % (37-47); Hemoglobin 14.5 g/dL (12.0-15.0); Mean Corp Hgb Conc 34.4 g/dL (32-36); Mean Corpuscular Hgb 31.5 pg (27.0-32.0); Mean Corpuscular Volume 91.5 fL (81-99); Mean Platelet Vol. 10.6 fl (6.2-12.0); Monocyte# 0.86 X10^3/uL; NRBC Flagged by Analyzer 0 % (0-5); Neutrophil # 5.92 X10^3/uL (2.7-7.7); Neutrophil % 61.7 % (47-70); Platelet Count 259 K/mm3 (150-450); RBC Distribution Width CV 12.2 % (11.6-14.6); RBC Distribution Width SD 40.6 fl (35.1-43.9); Red Blood Count 4.61 M/mm3 (4.2-5.4); White Blood Count 9.6 K/mm3 (4.4-11.0)
--- NOTE | 2024-10-19 20:15 | RAD_ITS ---
PROCEDURE: CHEST 1 VIEW (PORTABLE) 10/19/2024 REASON FOR EXAM: CHEST PAIN TECHNIQUE: Frontal view of the chest. COMPARISON: None. FINDINGS: The heart is normal in size. The mediastinum is normal in contour. The lungs are clear. No acute osseous abnormalities. RAD/Chest 1 View (Portable) IMPRESSION: No Acute Findings. Reading Location: [place] [id number]
[2024-10-19 20:37] LABS: Anion Gap 12 (5-15); BUN 12 mg/dL (4-19); BUN/Creat Ratio 14.7 RATIO (10-20); Calcium,Total 9.5 mg/dL (7.6-11.0); Carbon Dioxide 23.7 mmol/L (21.0-32.0); Chloride 104 mmol/L (98-108); EST Glomerular Filtration Rate 91 (>60); Estimated Creatinine Clearance 84.66 ml/min (50-250); Glucose 89 mg/dL (70-99); Potassium 3.6 mmol/L (3.3-5.1); Sodium Level 139 mmol/L (133-145)
[2024-10-19 20:39] LABS: Troponin T High Sensitivity < 6 ng/L (<=14)
[2024-10-19] MEDS: Mag Hydrox/Al Hydrox/Simeth 30 ML UDC PO (22:00)
[2024-10-19] MEDS: Lidocaine 2% Viscous15 ML UDC 15 ML PO (22:00)
[2024-10-19 22:47] LABS: Troponin T High Sens 2 HR < 6 ng/L (<=14)
== END 2024-10-19 23:05 | disposition home or self-care (01) ==
PROVIDERS: Emergency Provider Emergency Medicine; PCP Nurse Practitioner; Visit Provider Emergency Medicine
DX: R07.9 Chest pain, unspecified (principal); K21.9 Gastro-esophageal reflux disease without esophagitis; I10 Essential (primary) hypertension; F41.9 Anxiety disorder, unspecified; M79.7 Fibromyalgia; F17.210 Nicotine dependence, cigarettes, uncomplicated; Z90.49 Acquired absence of other specified parts of digestive tract; Z79.899 Other long term (current) drug therapy
CPT/HCPCS: 71045; 80048; 84484; 85025; 93005; 96360; 96361; 99285; A4216